=== PATIENT | female | born 1965 | race Caucasian/White ===

== ENCOUNTER → 2020-01-16 09:35 | Outpatient (CLI) | payer OTHER, SELFPAY | PROVIDERS: PCP Family Medicine; Referring Provider Family Medicine; Visit Provider Family Medicine | DX: J06.9 Acute upper respiratory infection, unspecified (principal) | CPT/HCPCS: 87635; C9803; U0003 ==

== ENCOUNTER 2021-04-30 16:31 | Outpatient (CLI) | payer SELFPAY ==
[2021-05-07 14:07] LABS: HPV APTIMA, High Risk Negative (Negative)
== END 2021-04-30 23:59 | disposition short-term general hospital (02) ==
LOC: LABSPEC 16:32
PROVIDERS: PCP Family Medicine; Visit Provider Obstetrics & Gynecology
DX: Z12.4 Encounter for screening for malignant neoplasm of cervix (principal)
CPT/HCPCS: 87624; 88175; G0145